=== PATIENT | male | born 1985 | race African-American/Black ===

== ENCOUNTER 2023-04-21 10:03 | Emergency (ER) | payer OTHER ==
[2023-04-21] MEDS ORDERED: Diphtheria,Pertussis(Acell),Tetanus Vaccine 0.5 ML Syringe IM ONE (10:47)
== END 2023-04-21 11:02 | disposition home or self-care (01) ==
LOC: MW.ED 10:03
DX: S09.90XA Unspecified injury of head, initial encounter (principal); Z23 Encounter for immunization; V89.2XXA Person injured in unspecified motor-vehicle accident, traffic, initial encounter; Y92.410 Unspecified street and highway as the place of occurrence of the external cause
CPT/HCPCS: 90471; 90715; 99283; 99283-25